=== PATIENT | male | born 1955 | race Caucasian/White ===

== ENCOUNTER 2022-06-07 13:21 | Outpatient (REF) | payer MEDICARE, SELFPAY ==
[2022-06-07 19:34] LABS: Calculated LDL 113 mg/dL (<100); Cholesterol 175 mg/dL (<200); HDL Cholesterol 51 mg/dL (40-60); TSH 0.83 uIU/mL (0.36-3.74); Triglyceride 56 mg/dL (<150)
== END 2022-06-07 13:22 | disposition home or self-care (01) ==
LOC: NCHCN 13:21
PROVIDERS: Visit Provider Physician Assistant
DX: K21.9 Gastro-esophageal reflux disease without esophagitis (principal); R29.90 Unspecified symptoms and signs involving the nervous system; I67.89 Other cerebrovascular disease; E78.49 Other hyperlipidemia; R79.89 Other specified abnormal findings of blood chemistry
CPT/HCPCS: 80061; 84443

== ENCOUNTER 2022-06-13 01:18 | Outpatient (CLI) | payer MEDICARE, SELFPAY ==
--- NOTE | 2022-06-13 08:45 | DI.NM_ITS ---
APPROVED REPORT Exam: Exercise Treadmill Patient Location: Out-Patient Room/Bed: Stress Nurse: Ema Stallings RN Ordering Provider:VARSHA TSAI, Contact Number: [phone] BMI: 26.06 Baseline Rhythm: Sinus Rhythm Indications: ABNORMAL ECHO, CAD Medical History Medical History: GERD, Small vessel disease, dilated aortic root, BPPV Cardiac Medications: Rosuvastatin, Pantoprazole, Famotidine, Clopidogrel Allergies: ASA Cardiac Risk Factors: FHX of CAD Previous Cardiac Procedures: None Pretest Chest Pain Characteristics: No chest pain Exercise History: Physically active Physical Disabilities: Knees Lung Sounds: Clear to auscultation Heart Sounds: Regular Stress Test Details Test: Exercise stress testing was performed using a modified Jamarcus protocol. Nuclear Acquisition: Rest Tc-99m/Stress Tc-99m 1 day Rest Isotope: Tc-99m Sestamibi. Dose: 10.0 Date: 06/13/2022 Injection Time: 0845 Stress Isotope: Tc-99m Sestamibi. Dose: 30.0 Date: 06/13/2022 Injection Time: 1100 HR Resting HR Supine: 61 bpm Max Heart Rate (APMHR): 152.283677 bpm Resting HR Standin bpm Target HR (85% APMHR): 129.950588 bpm Max HR Achieved: 130 bpm % of APMHR: 85.53 Recovery HR: 77 bpm HR response to stress: Normal HR response to stress BP Resting BP Supine: 122/88 mmHg Resting BP Standin/84 mmHg Max BP: 192/90 mmHg Recovery BP: 152/78 mmHg BP response to stress: Normal blood pressure response to stress. ECG Resting ECG: Sinus Rhythm Ectopy: None Stress ECG: Sinus Tachycardia ST Change: No significant ST segment changes noted Arrhythmia: occasional PAC/PVC Recovery ECG: Sinus Rhythm Recovery ST Change: No significant ST segment changes noted Recovery Arrhythmia: PACs Clinical Reason for Termination: Fatigue/Leg discomfort Stress Symptoms: Leg Fatigue Exercise duration: 14 min20 sec Highest Stage Reached: Stage 3: 3.4 mph at 14% grade. Exercise capacity: 8.11 METs Hauser Treadmill Score: 13.5 Rate Pressure Product: [id number] Stress ECG Conclusion 1. Resting electrocardiogram showed poor R wave progression 2. Patient exercised on the Jamarcus protocol completed a workload of 8.11 METS, stopping due to leg fat igue 3. Normal heart rate and blood pressure response to exercise. Patient achieved 86% of predicted hear t rate for age 4. There was no electrocardiographic evidence of myocardial ischemia 5. There were no significant dysrhythmias 6. See MPI report Hauser Treadmill Score is 13.5 which is Low risk. Stress Test Summary STAGE Time (mins) Speed (mph) Grade (%) HR BP SpO2 SYMPTOMS METS Supine 61 122/88 Standing 64 120/84 98 0 3 1.7 0 82 130/78 97 2.3 1/2 6 1.7 5 90 160/80 3.4 1 9 1.7 10 100 162/80 4.5 2 12 2.5 12 121 192/90 7 1 min recovery 106 184/80 3 min recovery 83 162/82 6 min recovery 77 152/78 Modified jamarcus protocol chosen d/t patient concern for baseline knee pain that increases with elevati on. In Stage 3 speed and elevation were further modified to encourage continuation of exercise follow ing tracer injection. MPI Conclusion Myocardial perfusion is normal. There is no evidence of ischemia or prior infarction EF is 70%, wall motion is normal Radiologist Interpretation Radiologist Interpretation by: Dar Lees MD Interpretation Date/Time: 06/14/2022 17:00:35
== END 2022-06-13 01:38 ==
PROVIDERS: PCP Physician Assistant; Visit Provider Physician Assistant
DX: I25.10 Atherosclerotic heart disease of native coronary artery without angina pectoris (principal); R93.1 Abnormal findings on diagnostic imaging of heart and coronary circulation
CPT/HCPCS: 78452; 93016; 93018; 93017

== ENCOUNTER → 2022-07-04 13:03 | Outpatient (BNVA) | payer MEDICARE, SELFPAY | PROVIDERS: PCP Physician Assistant; Referring Provider Physician Assistant; Visit Provider Internal Medicine Cardiovascular Disease | DX: R93.1 Abnormal findings on diagnostic imaging of heart and coronary circulation (principal); I67.9 Cerebrovascular disease, unspecified | CPT/HCPCS: 93005; 99203 ==

== ENCOUNTER 2022-07-04 13:04 | Outpatient (CLI) | payer MEDICARE, SELFPAY ==
--- NOTE | 2022-07-04 13:00 | RT.EKG_ITS ---
APPROVED REPORT Exam: Resting ECG Reason for Exam: abn echo Patient Location: O HR:63 bpm ECG Measurements Heart Rate 63 AXIS WV 186 P 53 QRSd 99 QRS 13 QT 418 T 24 QTc 428 Conclusion Sinus rhythm...normal P axis, V-rate 50- 99 Normal Electrocardiogram
== END 2022-07-04 13:05 | disposition home or self-care (01) ==
LOC: DI.CARD 13:04
PROVIDERS: PCP Physician Assistant; Visit Provider Internal Medicine Cardiovascular Disease
DX: I51.9 Heart disease, unspecified (principal); R93.1 Abnormal findings on diagnostic imaging of heart and coronary circulation
CPT/HCPCS: 93010

== ENCOUNTER 2024-06-17 08:12 | Outpatient (REF) | payer MEDICARE, SELFPAY ==
[2024-06-17 19:46] LABS: Hemoglobin A1C 5.5 % (<5.7)
[2024-06-17 19:48] LABS: ALT 18 U/L (16-63); AST 20 U/L (15-37); Albumin 3.9 g/dL (3.4-5.0); Alkaline Phosphatase 106 U/L (46-116); Anion Gap 4.5 mmol/L (3-11); BUN 12 mg/dL (7-18); Bilirubin, Total 0.65 mg/dL (0.2-1.0); CO2 31.5 mmol/L (21.0-32.0); Calcium 9.1 mg/dL (8.5-10.1); Calculated LDL 57 mg/dL (<100); Chloride 109 mmol/L (98-107); Cholesterol 116 mg/dL (<200); Estimated GFR 80.97 (mL/min/1.73m2); Glucose 110 mg/dL (74-106); HDL Cholesterol 47 mg/dL (40-60); Potassium 4.5 mmol/L (3.5-5.1); Sodium 145 mmol/L (136-145); Total Protein 7.1 g/dL (6.4-8.2); Triglyceride 64 mg/dL (<150)
[2024-06-18 18:11] LABS: PSA, Screening 9.4 ng/mL (<=6.5)
[2024-06-18 18:50] LABS: Hepatitis C Ab w Rflx HCV PCR Negative (Negative)
== END 2024-06-17 08:13 | disposition home or self-care (01) ==
LOC: NCHCN 08:12
PROVIDERS: PCP Physician Assistant; Visit Provider Physician Assistant
DX: E78.5 Hyperlipidemia, unspecified (principal); Z83.3 Family history of diabetes mellitus; R97.20 Elevated prostate specific antigen [PSA]
CPT/HCPCS: 80053; 80061; 84153; 86803; 83036

== ENCOUNTER 2024-11-23 13:47 | Outpatient (REF) | payer MEDICARE, SELFPAY ==
[2024-11-23 18:48] LABS: Abs Immature Grans 0.01 10^3/uL (0.0-0.06); Absolute Basophil Count 0.03 10^3/uL (0.0-0.2); Absolute Eosinophil Count 0.03 10^3/uL (0.0-0.7); Absolute Lymphocyte Count 0.97 10^3/uL (1.2-3.4); Absolute Monocyte Count 0.48 10^3/uL (0.1-0.8); Absolute Neutrophil Count 2.61 10^3/uL (1.2-6.7); Basophils % 0.7 %; Eosinophils % 0.7 %; HCT 43.4 % (40.0-50.0); HGB 14.9 g/dL (13.5-17.5); Immature Grans % 0.2 %; Lymphocytes % 23.5 %; MCH 30.7 pg (27.0-33.0); MCHC 34.3 % (32.0-36.0); MCV 89 fL (80-95); MPV 9.3 fL (8.0-11.0); Monocytes % 11.6 %; Neutrophils % 63.3 %; Platelet Count 243 10^3/uL (130-400); RBC 4.86 10^6/uL (4.36-5.78); RDW 12.4 % (11.8-14.1); RDW-SD 40.6 fL; WBC 4.13 10^3/uL (4.4-10.8)
[2024-11-23 19:09] LABS: ALT 30 U/L (16-63); AST 26 U/L (15-37); Alkaline Phosphatase 93 U/L (46-116); Anion Gap 4.6 mmol/L (3-11); BUN 12 mg/dL (7-18); Bilirubin, Total 0.7 mg/dL (0.2-1.0); CO2 29.4 mmol/L (21.0-32.0); Calcium 8.8 mg/dL (8.5-10.1); Chloride 108 mmol/L (98-107); Estimated GFR 80.97 (mL/min/1.73m2); Glucose 106 mg/dL (74-106); Potassium 3.6 mmol/L (3.5-5.1); Sodium 142 mmol/L (136-145); TSH (W/Ref FT4) 0.85 uIU/mL (0.36-3.74); Total Protein 7.1 g/dL (6.4-8.2)
== END 2024-11-23 13:48 | disposition home or self-care (01) ==
LOC: NCHCN 13:47
PROVIDERS: PCP Physician Assistant; Visit Provider Physician Assistant
DX: R53.1 Weakness (principal); R97.20 Elevated prostate specific antigen [PSA]
CPT/HCPCS: 80053; 84154; 84443; 85025

== ENCOUNTER → 2025-05-03 08:25 | Outpatient (BNVA) | payer MEDICARE, SELFPAY | PROVIDERS: PCP Physician Assistant; Referring Provider Physician Assistant; Visit Provider Urology | DX: N39.0 Urinary tract infection, site not specified (principal); A49.9 Bacterial infection, unspecified; R97.20 Elevated prostate specific antigen [PSA] | CPT/HCPCS: 99215 ==

== ENCOUNTER 2025-05-09 19:34 | Outpatient (REF) | payer MEDICARE, SELFPAY ==
[2025-05-09 20:13] LABS: C-Reactive Protein 0.71 mg/dL (<=0.50)
[2025-05-09 20:18] LABS: Anion Gap 8 mmol/L (3-11); BUN 9 mg/dL (9-23); CO2 28.0 mmol/L (20.0-31.0); Calcium 8.7 mg/dL (8.3-10.6); Chloride 106 mmol/L (98-107); Glucose 115 mg/dL (74-106); Potassium 4.0 mmol/L (3.5-5.1); Sodium 142 mmol/L (136-145)
[2025-05-09 20:35] LABS: Abs Immature Grans 0.02 10^3/uL (0.0-0.06); HCT 44.7 % (40.0-50.0); HGB 14.7 g/dL (13.5-17.5); Immature Grans % 0.3 %; MCH 29.6 pg (27.0-33.0); MCHC 32.9 % (32.0-36.0); MCV 90 fL (80-95); MPV 8.7 fL (8.0-11.0); Platelet Count 514 10^3/uL (130-400); RBC 4.97 10^6/uL (4.36-5.78); RDW 12.6 % (11.8-14.1); RDW-SD 41.7 fL; WBC 7.02 10^3/uL (4.4-10.8)
== END 2025-05-09 19:35 | disposition home or self-care (01) ==
LOC: NCHCN 19:34
PROVIDERS: PCP Physician Assistant; Visit Provider Physician Assistant
DX: A41.9 Sepsis, unspecified organism (principal); N39.0 Urinary tract infection, site not specified
CPT/HCPCS: 80048; 85025; 86140